=== PATIENT | female | born 1985 | race Caucasian/White ===

== ENCOUNTER 2017-08-27 17:20 | Emergency (ER) | payer SELFPAY ==
[~2017-08-27] VITALS: Ht 157.5 cm; Wt 44.2 kg
[~2017-08-27 17:20] MED LIST: AMOXICILLIN500 MG PO; FERR SULFATE325 MG PO; LORTAB 7.57.5 MG PO; NAPROSYN500 MG PO; NO HOME MEDS; PRENATAL1 TA1 PO; SMZ-TMP DS1 TAB PO; ULTRAM50 M1 PO
[2017-08-27] MEDS ORDERED: TORADOL PO (19:46)
[2017-08-27] MEDS ORDERED: CLINDAMYCIN300 M1 PO (19:46)
[2017-08-27 20:31] VITALS: BP 117/60
== END 2017-08-27 20:31 | disposition home or self-care (01) | DRG 914 ==
LOC: ED 17:20
DX: S91.341A Puncture wound with foreign body, right foot, initial encounter (principal); W22.8XXA Striking against or struck by other objects, initial encounter; Y92.009 Unspecified place in unspecified non-institutional (private) residence as the place of occurrence of the external cause

== ENCOUNTER 2021-01-10 19:27 | Emergency (ER) | payer OTHER ==
[~2021-01-10 19:27] MED LIST changes: +CLINDAMYCIN300 M1 PO; +TORADOL PO
[2021-01-11] MEDS ORDERED: KEFLEX500 M1 PO (15:05)
[2021-01-11] MEDS ORDERED: CLARITIN10 M1 PO (15:06)
== END 2021-01-10 21:31 | disposition left against medical advice (07) | DRG 951 ==
LOC: ED 19:27 → LWOBS 21:31
DX: Z53.21 Procedure and treatment not carried out due to patient leaving prior to being seen by health care provider (principal)

== ENCOUNTER 2021-01-11 13:26 | Emergency (ER) | payer SELFPAY ==
[~2021-01-11] VITALS: Ht 157.5 cm; Wt 45.0 kg
[2021-01-11 14:18] LABS: URINE BILIRUBIN - DIPSTICK NEGATIVE (NEGATIVE); URINE BLOOD DIPSTICK TRACE-LYSED (NEGATIVE); URINE COLOR YELLOW; URINE GLUCOSE - DIPSTICK NEGATIVE (NEGATIVE); URINE KETONE NEGATIVE (NEGATIVE); URINE NITRITE - DIPSTICK NEGATIVE (Negative); URINE PH 5.5 (4.5-8.0); URINE PROTEIN - DIPSTICK NEGATIVE (NEG-TRACE); URINE SPECIFIC GRAVITY 1.025; URINE UROBILINOGEN - DIPSTICK 0.2 E.U./dL (0.2)
[2021-01-11 14:28] LABS: URINE LEUK ESTERASE SMALL (NEGATIVE)
[2021-01-11 14:31] LABS: URINE RBC 0-2 RBC/hpf (0-5)
[2021-01-11 14:32] LABS: URINE SQUAMOUS EPITHELIAL CELL FEW EPI/hpf (0-FEW)
[2021-01-11 14:38] LABS: HCG SERUM/URINE (NEG/POS) NEGATIVE (NEGATIVE)
[2021-01-11] MEDS ORDERED: KEFLEX500 M1 PO (15:05)
[2021-01-11] MEDS ORDERED: CLARITIN10 M1 PO (15:06)
[2021-01-11 15:12] VITALS: BP 127/72
== END 2021-01-11 15:12 | disposition home or self-care (01) | DRG 153 ==
LOC: ED 13:26
PROVIDERS: Emergency Medicine
DX: J06.9 Acute upper respiratory infection, unspecified (principal); N39.0 Urinary tract infection, site not specified; F17.200 Nicotine dependence, unspecified, uncomplicated; B96.20 Unspecified Escherichia coli [E. coli] as the cause of diseases classified elsewhere; Z20.822 Contact with and (suspected) exposure to COVID-19

== ENCOUNTER 2022-07-24 14:59 | Emergency (ER) | payer SELFPAY ==
[2022-07-24] VITALS (8 sets, daily range): BP systolic 114–127; BP diastolic 63–77
[~2022-07-24] VITALS: Ht 157.5 cm; Wt 48.0 kg
[~2022-07-24 14:59] MED LIST changes: +CLARITIN10 M1 PO; +KEFLEX500 M1 PO
[2022-07-24] MEDS ORDERED: NAPROXEN500 MG PO (16:30)
[2022-07-24] MEDS ORDERED: BACTRIM DS1 TAB PO (16:30)
== END 2022-07-24 17:22 | disposition home or self-care (01) | DRG 603 ==
LOC: ED 14:59
PROC: 0J9D0ZZ Drainage of Right Upper Arm Subcutaneous Tissue and Fascia, Open Approach (ICD-10-PCS; principal; 2022-07-24)
DX: L02.411 Cutaneous abscess of right axilla (principal); B95.62 Methicillin resistant Staphylococcus aureus infection as the cause of diseases classified elsewhere

== ENCOUNTER 2024-10-12 16:57 | Emergency (ER) | payer SELFPAY ==
[~2024-10-12 16:57] MED LIST changes: +BACTRIM DS1 TAB PO; +NAPROXEN500 MG PO
== END 2024-10-12 18:32 | disposition left against medical advice (07) | DRG 951 ==
LOC: ED 16:57 → LWOBS 17:49 → ED 17:49
DX: Z53.21 Procedure and treatment not carried out due to patient leaving prior to being seen by health care provider (principal)